=== PATIENT | female | born 1985 | race Caucasian/White ===

== ENCOUNTER 2019-03-23 08:31 | Emergency (ER) | payer MEDICAID, OTHER ==
[~2019-03-23] VITALS: Ht 162.6 cm; Wt 118.2 kg
--- NOTE | 2019-03-23 08:51 | NUR ---
PATIENT STATES THAT SHE HAS HAD COUGH, FEVER, SINUS CONGESTION, BILAT EAR PAIN X 1 WEEK. TAKING DAYQUIL WITH MINIMAL RELIEF.
[2019-03-23] MEDS ORDERED: FLUT16SP2 BOTHNARES (09:28)
[2019-03-23 09:39] VITALS: BP 138/92
== END 2019-03-23 09:40 | disposition home or self-care (01) ==
LOC: ER 08:32
DX: J06.9 Acute upper respiratory infection, unspecified (principal); F17.200 Nicotine dependence, unspecified, uncomplicated; Z98.890 Other specified postprocedural states
CPT/HCPCS: 99283

== ENCOUNTER 2019-08-30 19:19 | Emergency (ER) | payer MEDICAID, OTHER ==
[~2019-08-30] VITALS: Ht 162.6 cm; Wt 126.0 kg
[~2019-08-30 19:19] MED LIST: FLUT16SP2 BOTHNARES
[2019-08-30 19:35] VITALS: BP 128/62
== END 2019-08-30 20:24 | disposition home or self-care (01) ==
LOC: ER 19:20
DX: S63.502A Unspecified sprain of left wrist, initial encounter (principal); Z79.899 Other long term (current) drug therapy; X50.1XXA Overexertion from prolonged static or awkward postures, initial encounter; Y93.89 Activity, other specified; Y92.89 Other specified places as the place of occurrence of the external cause; Y99.9 Unspecified external cause status
CPT/HCPCS: 73110; 99283